=== PATIENT | female | born 1940 | race Caucasian/White ===

== ENCOUNTER 2023-06-10 13:35 | Outpatient (RCR) | payer OTHER, SELFPAY ==
[2023-06-10 14:00] VITALS: BP 128/86
[2023-06-10] MEDS: XOLAIR 150 MG SC ×2 (14:08)
== END 2023-07-01 23:59 | disposition home or self-care (01) ==
LOC: OID 13:35
PROVIDERS: ATTENDING PHYSICIAN Internal Medicine; FAMILY PHYSICIAN Family Medicine
DX: L50.1 Idiopathic urticaria (principal)
CPT/HCPCS: 96372; J2357

== ENCOUNTER 2023-08-12 13:38 | Outpatient (RCR) | payer OTHER, SELFPAY ==
[2023-08-12 13:45] VITALS: BP 127/91
[2023-08-12] MEDS: XOLAIR 150 MG SC ×2 (13:56)
== END 2023-08-30 23:59 | disposition home or self-care (01) ==
LOC: OID 13:38
PROVIDERS: ATTENDING PHYSICIAN Internal Medicine; FAMILY PHYSICIAN Family Medicine
DX: L50.1 Idiopathic urticaria (principal)
CPT/HCPCS: 96372; J2357

== ENCOUNTER 2023-10-07 13:33 | Outpatient (RCR) | payer OTHER, SELFPAY ==
[2023-10-07 13:44] VITALS: BP 135/81
[2023-10-07] MEDS: XOLAIR 150 MG SC ×2 (13:53)
== END 2023-10-08 09:21 | disposition home or self-care (01) ==
LOC: OID 13:33
PROVIDERS: ATTENDING PHYSICIAN Internal Medicine; FAMILY PHYSICIAN Family Medicine
DX: L50.1 Idiopathic urticaria (principal)
CPT/HCPCS: 96372; J2357

== ENCOUNTER 2023-11-30 14:25 | Outpatient (RCR) | payer OTHER, SELFPAY ==
[2023-11-30 14:33] VITALS: BP 104/72
[2023-11-30] MEDS: XOLAIR 150 MG SC ×2 (14:40)
== END 2023-12-01 10:17 | disposition home or self-care (01) ==
LOC: OID 14:25
PROVIDERS: ATTENDING PHYSICIAN Internal Medicine; FAMILY PHYSICIAN Family Medicine
DX: L50.1 Idiopathic urticaria (principal)
CPT/HCPCS: 96372; J2357